=== PATIENT | female | born 1955 | race Caucasian/White ===

== ENCOUNTER 2021-01-25 11:22 | Emergency (ER) | payer BC, OTHER ==
[2021-01-25] MEDS ORDERED: Boostrix 0.5 ML (Tdap) VIAL ONE (14:28)
== END 2021-01-25 14:51 | disposition home or self-care (01) ==
LOC: ERS 11:22
DX: T25.221A Burn of second degree of right foot, initial encounter (principal); L03.115 Cellulitis of right lower limb; R03.0 Elevated blood-pressure reading, without diagnosis of hypertension; Z23 Encounter for immunization
CPT/HCPCS: 90471; 90715

== ENCOUNTER 2021-05-25 15:33 | Emergency (ER) | payer OTHER ==
[2021-05-25] MEDS ORDERED: Lidocaine 1% w/Epinephrine 1:100K 20 ML VIAL ONE ×3 (16:29→17:18)
== END 2021-05-25 18:18 | disposition home or self-care (01) ==
LOC: ERS 15:33
DX: S51.812A Laceration without foreign body of left forearm, initial encounter (principal); I10 Essential (primary) hypertension; W26.0XXA Contact with knife, initial encounter
CPT/HCPCS: 12001

== ENCOUNTER 2021-09-18 15:22 | Outpatient (CLI) | payer OTHER | END 2021-09-18 15:23 | disposition home or self-care (01) | LOC: BICMAMMO 15:22 | PROVIDERS: ATTEND Nurse Practitioner Family | DX: Z12.31 Encounter for screening mammogram for malignant neoplasm of breast (principal); Z80.3 Family history of malignant neoplasm of breast | CPT/HCPCS: 77063; 77067 ==